=== PATIENT | female | born 1980 | race African-American/Black ===

== ENCOUNTER 2022-06-24 04:22 | Day surgery (SDC) | payer BC, OTHER ==
[2022-06-19 14:39] VITALS: BMI 28.5
[2022-06-24] MEDS ORDERED: PROPOFOL 40 ML ONE (07:34)
[2022-06-24] MEDS ORDERED: DEXAMETHASONE SOD PHOSPHATE 4 MG/1 ML VIAL ONE (07:34)
[2022-06-24] MEDS ORDERED: FENTANYL CITRATE/PF 50 MCG/ML VIAL ONE ×2 (07:34→08:22)
[2022-06-24] MEDS ORDERED: LIDOCAINE HCL/PF 2% SDV 5ML VIAL ONE (07:34)
[2022-06-24] MEDS ORDERED: ONDANSETRON 4 MG/2 ML VIAL ONE (07:34)
[2022-06-24] MEDS ORDERED: ceFAZolin SODIUM 1 GM VIAL ONE (07:34)
[2022-06-24] MEDS ORDERED: MIDAZOLAM HCL 2 MG/2 ML SINGLE DOSE VIAL ONE (07:34)
[2022-06-24] MEDS ORDERED: ROCURONIUM BROMIDE 50 MG/5 ML SYRINGE ONE (08:08)
[2022-06-24] MEDS ORDERED: NEOSTIGMINE METHYLSULFATE 0.5 MG/1 ML - 10 ML MDV ONE (08:55)
[2022-06-24] MEDS ORDERED: ACETAMINOPHEN 325 MG TABLET (FP) PO PRN (09:11)
[2022-06-24] MEDS ORDERED: oxyCODONE HCL 5 MG TABLET PO PRN ×2 (09:11→09:19)
[2022-06-24] MEDS ORDERED: ONDANSETRON 4 MG/2 ML VIAL IVPUSH PRN (09:19)
[2022-06-24] MEDS ORDERED: FENTANYL CITRATE/PF 50 MCG/ML VIAL IVPUSH PRN ×2 (09:19)
[2022-06-24] MEDS ORDERED: ACETAMINOPHEN 1000 MG/100 ML BAG IVPB ONE (09:21)
[2022-06-24] MEDS ORDERED: LACTATED RINGERS SOLUTION 1,000 ML IV SCH (09:30)
[2022-06-24] MEDS ORDERED: ACETAMINOPHEN INJECTION 100 ML IVPB ONE (10:02)
[2022-06-24 11:07] VITALS: RESP 18
[2022-06-24 11:52] VITALS: BP 143/95; PULSE 60; TEMP 97.2
== END 2022-06-24 12:19 | disposition home or self-care (01) ==
LOC: JASU-SURG 04:22
PROVIDERS: ATTEND Otolaryngology
PROC: 07B10ZX Excision of Right Neck Lymphatic, Open Approach, Diagnostic (ICD-10-PCS; principal; 2022-06-24 08:00)
DX: R59.0 Localized enlarged lymph nodes (principal)
CPT/HCPCS: 88307-TC; 94760